=== PATIENT | male | born 1970 | race Caucasian/White ===

== ENCOUNTER 2018-01-14 16:30 | Emergency (ER) | payer BC ==
[2018-01-14] MEDS: IV NORMAL SALINE 1000ML BAG 1,000 ML IV (17:30)
[2018-01-14] MEDS: ONDANSETRON PF 4 MG/2 ML VIAL. IV (17:31)
[2018-01-14] MEDS: fentaNYL PF VIAL 100 MCG/2 ML VIAL IV ×2 (17:35→18:55)
[2018-01-14] MEDS: FAMOTIDINE 20 MG/2 ML VIAL IVP (17:36)
[2018-01-14 18:01] LABS: ADD MAN DIFF? NO
[2018-01-14 18:08] LABS: BASO # 0.1 x10^3/uL (0.0-0.2); BASO % 1 % (0-3); EOS % 9 % (0-3); HEMATOCRIT 43.4 % (39.0-53.0); HEMOGLOBIN 15.6 g/dL (13.0-17.5); LYMPH # 2.2 x10^3/uL (1.0-4.8); LYMPH % 19 % (24-48); MEAN CORPUSCULAR HEMOGLOBIN 31 pg (25-35); MEAN CORPUSCULAR HGB CONC 36 g/dL (31-37); MEAN CORPUSCULAR VOLUME 87 fL (79-100); MONO # 0.7 x10^3/uL (0.0-1.1); MONO % 6 % (0-9); NEUT # 7.8 x10^3uL (1.8-7.7); NEUT % 66 % (31-73); PLATELET COUNT 185 x10^3/uL (140-400); RED BLOOD COUNT 4.98 x10^6/uL (4.30-5.70); RED CELL DISTRIBUTION WIDTH 13.4 % (11.5-14.5); WHITE BLOOD COUNT 11.8 x10^3/uL (4.0-11.0)
[2018-01-14 18:13] LABS: ANION GAP 9 (6-14); BLOOD UREA NITROGEN 21 mg/dL (8-26); BUN/CREATININE RATIO 19 (6-20); CALCIUM 9.1 mg/dL (8.5-10.1); CARBON DIOXIDE 29 mmol/L (21-32); CHLORIDE 102 mmol/L (98-107); CREATININE 1.1 mg/dL (0.7-1.3); GFR 71.1; GLUCOSE 124 mg/dL (70-99); SODIUM 140 mmol/L (136-145)
[2018-01-14 18:21] LABS: ALBUMIN 4.3 g/dL (3.4-5.0); ALBUMIN/GLOBULIN RATIO 1.5 (1.0-1.7); ALK PHOS 71 U/L (46-116); ALT (SGPT) 35 U/L (16-63); AST (SGOT) 20 U/L (15-37); LIPASE 53 U/L (73-393); TOTAL BILIRUBIN 1.4 mg/dL (0.2-1.0); TOTAL PROTEIN 7.2 g/dL (6.4-8.2)
[2018-01-14 18:25] LABS: TROPONINI < 0.017 ng/mL (0.000-0.055)
[2018-01-14] MEDS ORDERED: CONTRAST GIVEN MC (19:00)
[2018-01-14] MEDS: LIDO:MAALOX 1:1 20 ML SINGLE DOSE. SWSW (19:05)
[2018-01-14] MEDS: IOHEXOL 300 MG/ML 100ML VIAL. IV (19:13)
[2018-01-14 20:03] LABS: POC GLUCOSE 106 mg/dL (70-99)
== END 2018-01-14 20:33 | disposition home or self-care (01) ==
LOC: ER 16:30
DX: K80.70 Calculus of gallbladder and bile duct without cholecystitis without obstruction (principal)
CPT/HCPCS: 36415; 74177; 76705; 80053; 82962; 83690; 84484; 85025; 93005; 96374; 96375; 96376; 99285-25; J2405; J3010; J7030; Q9967; S0028

== ENCOUNTER 2018-01-30 06:32 | Day surgery (SDC) | payer BC ==
[~2018-01-30 06:32] MED LIST: IOHEXOL 300 MG/ML 100ML VIAL.; SURGICEL HEMOSTAT 4X8 EACH.
[2018-01-30] MEDS: IV RINGERS,LACTATED 1000ML 1,000 ML IV (07:00)
[2018-01-30] MEDS ORDERED: fentaNYL PF VIAL 100 MCG/2 ML VIAL IV ×2 (07:00)
[2018-01-30] MEDS ORDERED: LIDOCAINE 1% PF 2 ML VIAL. ID (07:00)
[2018-01-30] MEDS ORDERED: MORPHINE SULFATE 4 MG/ML DISP.SYRIN. IV (07:00)
[2018-01-30 07:07] LABS: POC GLUCOSE 85 mg/dL (70-99)
[2018-01-30] MEDS ORDERED: fentaNYL PF VIAL 250 MCG/5 ML VIAL (07:34)
[2018-01-30] MEDS ORDERED: ROCURONIUM 50 MG/5 ML VIAL. (07:34)
[2018-01-30] MEDS ORDERED: MIDAZOLAM HCL/PF 2 MG/2 ML VIAL. (07:40)
[2018-01-30] MEDS: BUPIVACAINE-EPI 0.25%-1:200000 50 ML VIAL. (08:15)
[2018-01-30] MEDS ORDERED: DEXAMETHASONE SOD PHOS 20 MG/5 ML VIAL. (08:37)
[2018-01-30] MEDS ORDERED: PROPOFOL 20 ML IV (08:37)
[2018-01-30] MEDS ORDERED: SEVOFLURANE 61 TO 120 MINUTES. IH (08:37)
[2018-01-30] MEDS ORDERED: LIDOCAINE 2% PF Vial for OR 5 ML VIAL. (08:37)
[2018-01-30] MEDS ORDERED: NEOSTIGMINE METHYLSULFATE 5 MG/5 ML SYRINGE. (08:37)
[2018-01-30] MEDS ORDERED: ONDANSETRON PF 4 MG/2 ML VIAL. (08:37)
[2018-01-30] MEDS ORDERED: GLYCOPYRROLATE 1 MG/5 ML VIAL. (08:38)
[2018-01-30] MEDS ORDERED: oxyCODONE/APAP 5/325 1 TAB TABLET PO ×2 (09:15)
[2018-01-30] MEDS: PROCHLORPERAZINE 10 MG/2 ML VIAL. IV (09:20)
[2018-01-30] MEDS ORDERED: ceFAZolin 2GM PREMIX 2 GM/50 ML BAG IV (10:00)
== END 2018-01-30 10:53 | disposition home or self-care (01) ==
LOC: SURG 06:32
DX: K80.10 Calculus of gallbladder with chronic cholecystitis without obstruction (principal); K21.9 Gastro-esophageal reflux disease without esophagitis; F41.9 Anxiety disorder, unspecified; E11.9 Type 2 diabetes mellitus without complications; Z98.890 Other specified postprocedural states; Z72.89 Other problems related to lifestyle; Z72.0 Tobacco use
CPT/HCPCS: 47562; 82962; 88304; A7015; J0690; J0780; J1100; J2250; J2405; J2704; J2710; J3010; J3490; J7030; J7120; Q9967

== ENCOUNTER → 2018-04-23 | Outpatient (CLI) | payer BC ==
[2018-01-30 09:39] VITALS: BP 114/71
[~2018-04-23] MED LIST changes: +ALBU8.5H6 INH; +ALLO100T PO; +CITA40TA12 PO; +GLIP5TAB10 PO; +HYDR-971 PO; -IOHEXOL 300 MG/ML 100ML VIAL.; +METF10007 PO; +ONDA4TAB12 PO; +OXYC-323 PO; +RANI300T3 PO; -SURGICEL HEMOSTAT 4X8 EACH.
--- NOTE | 2018-04-23 16:25 | KCIC ---
Chest, 2 views, 04/23/2018: HISTORY: Fever, abnormal right lung sounds The heart size is normal. No pulmonary infiltrate is seen. There is no evidence of pleural fluid. A surgical plate and screws is evident in the lower cervical spine. A small radiopacity overlying the glenoid region of the right scapula is also probably postsurgical. IMPRESSION: No acute cardiopulmonary abnormality is detected. Electronically signed by: Prosper Fox MD (04/23/2018 4:22 PM) [facility]
== END | disposition home or self-care (01) ==
LOC: KCIC 15:48
PROVIDERS: ATTEND Family Medicine
DX: R09.89 Other specified symptoms and signs involving the circulatory and respiratory systems (principal); E11.9 Type 2 diabetes mellitus without complications; K21.9 Gastro-esophageal reflux disease without esophagitis; M19.022 Primary osteoarthritis, left elbow; Z72.0 Tobacco use
CPT/HCPCS: 71046

== ENCOUNTER → 2019-05-20 | Outpatient (CLI) | payer BC ==
[2018-01-30 09:39] VITALS: BP 114/71
[~2019-05-20] MED LIST changes: +HYDR-3164 PO; -HYDR-971 PO; -OXYC-323 PO; +OXYC1TAB15 PO
--- NOTE | 2019-05-20 13:32 | KCIC ---
MRI Lumbar Spine without contrast History: Back pain after fall Technique: Multiplanar, multi sequential noncontrast MR imaging was performed of the lumbar spine. Comparison: None Findings: Lumbar vertebral body stature is mostly preserved, small Schmorl's nodes L5. There are multiple foci of increased signal on all sequences of the marrow more likely due to hemangiomas given T1 hyperintense signal most notable of T12, L1, L4 and also the visualized bony pelvis. There is advanced degenerative disc disease at L5-S1, degenerative endplate change and edema greater posteriorly. There is no fluid in the intervertebral disc spaces. There is moderate degenerative disc disease at L4-5 and to lesser degree L2-3. Conus terminates at L1-2. L1-L2: This level was not included on the axial images. Neural foramina and spinal canal are adequate. L2-L3: There is negligible disc osteophyte complex. Spinal canal and neural foramina are adequate. There is mild to moderate facet degenerative change and minimal buckling of the ligamentum flavum. L3-L4: There is mild to moderate facet degenerative change and minimal buckling of the ligamentum flavum. The is mild prominence of posterior epidural fat centrally. There is negligible disc osteophyte complex. There is minimal narrowing of the inferior left neural foramen greater distally, disc osteophyte complex also near the extraforaminal left L3 nerve root without displacement. There is left posterolateral annular tear. Right neural foramen is adequate. Spinal canal is overall adequate. L4-L5: There is minimal disc osteophyte complex. There is minimal facet degenerative change. Spinal canal and neural foramina are overall adequate. L5-S1: There is disc osteophyte complex with superimposed bulge, also more focal protrusion in the left lateral recess estimated about 0.4 cm AP contacting the descending left S1 nerve root. There is mild narrowing of the far left lateral recess. There is mild facet degenerative change. Right neural foramen is overall adequate. Disc osteophyte complex and facet degenerative change contributes to [id number] narrowing of the left neural foramen. Impression: 1. There is more advanced degenerative disc disease L5-S1, to a lesser degree at L4-5 and minimally at L2-3. L5-S1 endplate edema is likely reactive/degenerative in etiology. 2. There is protrusion in the left lateral recess at L5-S1 contacting the descending left S1 nerve root with mild left lateral recess stenosis. There is no significant lumbar spinal stenosis. 3. There is [id number]-[id number] narrowing of the left L5-S1 neural foramen, minimal narrowing on the left at L3-4. 4. Multiple foci of marrow signal change are likely due to hemangiomas, variably hyperintense on T1 sequence. Electronically signed by: Darian Smith MD (05/20/2019 1:28 PM) [id number]
== END | disposition home or self-care (01) ==
LOC: KCIC MRI 12:20
PROVIDERS: ATTEND Chiropractor
DX: M51.37 Other intervertebral disc degeneration, lumbosacral region (principal); M51.27 Other intervertebral disc displacement, lumbosacral region; M25.78 Osteophyte, vertebrae; M48.07 Spinal stenosis, lumbosacral region
CPT/HCPCS: 72148

== ENCOUNTER → 2019-07-30 | Outpatient (CLI) | payer BC ==
[2018-01-30 09:39] VITALS: BP 114/71
--- NOTE | 2019-07-30 15:47 | KCIC ---
EXAM: Chest, 2 views. HISTORY: Bronchitis. COMPARISON: 04/23/2018 FINDINGS: 2 views the chest are obtained. There is no infiltrate, pleural effusion or pneumothorax. The heart is normal in size. There is cervical spinal fusion instrumentation. IMPRESSION: No acute pulmonary finding. Electronically signed by: Zakia Erazo MD (07/30/2019 3:44 PM) [place] [id number]
== END | disposition home or self-care (01) ==
LOC: KCIC 14:40
PROVIDERS: ATTEND Family Medicine
DX: J40 Bronchitis, not specified as acute or chronic (principal)
CPT/HCPCS: 71046

== ENCOUNTER → 2020-09-20 | Outpatient (CLI) | payer BC ==
[2018-01-30 09:39] VITALS: BP 114/71
--- NOTE | 2020-09-20 12:59 | KCIC ---
EXAM: Maxillofacial bone CT without contrast. HISTORY: Chronic sinusitis. TECHNIQUE: Computed tomographic images of the maximal facial bones were obtained without contrast. *One or more of the following individualized dose reduction techniques were utilized for this examina tion: 1. Automated exposure control. 2. Adjustment of the mA and/or kV according to patient size. 3. Use of iterative reconstruction technique. COMPARISON: None. FINDINGS: There is minimal bilateral frontal, ethmoid and maxillary sinus mucosal thickening. The ost iomeatal units are patent. There is mild rightward nasal septal deviation. There is no sinus air-flui d level to suggest acute sinusitis. There is no sinus wall thickening to suggest chronic sinusitis. T he orbits and mastoid air cells are unremarkable. The visualized portions of the calvarium and brain are unremarkable. IMPRESSION: 1. Minimal paranasal sinus mucosal thickening. 2. Mild nasal septal deviation. Electronically signed by: Zakia Erazo MD (09/20/2020 12:56 PM) [id number]
== END ==
LOC: KCIC CT 10:28
PROVIDERS: ATTEND Family Medicine
DX: J32.8 Other chronic sinusitis (principal); J34.2 Deviated nasal septum; R51.9 Headache, unspecified; R09.81 Nasal congestion
CPT/HCPCS: 70486

== ENCOUNTER → 2020-09-21 | Outpatient (CLI) | payer BC ==
[2018-01-30 09:39] VITALS: BP 114/71
--- NOTE | 2020-09-21 14:11 | RAD ---
MR#: [id number] Date of Study: 09/21/2020 Ordering Physician: JEFFERY GEORGE, Referring Physician: FELIPE WRIGHT Tech: APPROVED REPORT Test Type: Exercise Stress Nurse/Tech: Patricia Moya R.N. Test Indications: C/P Cardiac History: DM, chews tobacco, recent HTN Medications: See Electronic Medical Record Medical History: See Electronic Medical Record Resting ECG: SR Resting Heart Rate: 82 bpm Resting Blood Pressure: 171/87mmHg Pretest Chest Pain: No chest pain Nurse/Tech Notes S1S2, lungs CTA Consent: The procedure was explained to the patient in lay terms. Informed consent was witnessed. Joe eout was entered into [employer] [place]. History and Stress Test performed by RT Willi (R) (N) Stress Symptoms SOA, fatigue POST EXERCISE Reason for Termination: Reached target heart rate Target HR: Yes Max HR: 145 bpm 86% of Maximum Predicted HR: 168 bpm Exercise duration: 8:58 min:sec, 3 Stage Exercise capacity: 10.0METs Max Blood Pressure: 206/90mmHg Blood Pressure response to exercise: Normal blood pressure response during stress. Heart Rate response to exercise: wnl Chest Pain: No. Arrhythmia: No. INTERPRETATION Stress EKG Conclusion: The resting EKG shows a sinus rhythm. There is mild upsloping ST depression in the lateral leads and mild ST depression in lead III. Mild EKG changes with exertion that are not diagnostic of stress-induced ischemia. Conclusion 1. Good exercise tolerance with patient walking for 8 minutes and 58 seconds on a Rohit protocol. 2. No reported chest pain with exertion. 3. Normal baseline EKG. 4. Mild nonspecific ST segment changes with exertion that are not diagnostic of stress-induced ischem ia. 5. Moderately low risk treadmill stress test. However if clinical suspicion is sufficient would cons ider a treadmill nuclear stress test. Signed by : Faustino Lacey MD Electronically Approved : 09/21/2020 14:11:03
== END ==
LOC: NM 08:19
PROVIDERS: ATTEND Family Medicine
DX: I10 Essential (primary) hypertension (principal)
CPT/HCPCS: 93017

== ENCOUNTER → 2020-09-26 | Outpatient (CLI) | payer BC ==
[2018-01-30 09:39] VITALS: BP 114/71
[~2020-09-26] MED LIST changes: +IOHEXOL 240 MG/ML 50ML VIAL. PO ONE; +IOHEXOL 300 MG/ML 100ML VIAL. IV ONE
--- NOTE | 2020-09-27 12:39 | KCIC ---
PQRS Compliance Statement: One or more of the following individualized dose reduction techniques were utilized for this examinat ion: 1. Automated exposure control 2. Adjustment of the mA and/or kV according to patient size 3. Use of iterative reconstruction technique CT ABDOMEN+PELVIS W Clinical Indication: Reason: RUQ pain, bilateral flank pain radiates to front, chills. / hx cholecyst ectomy / History: Comparison: CT abdomen and pelvis with contrast January 14, 2018. Technique: Helical CT imaging of the abdomen and pelvis is performed after 100 cc of Omnipaque 300 IV contrast. Oral contrast also administered. Findings: The lung bases are clear. Cardiac size normal. There is a 1 cm hyperenhancing lesion in segment 2 of the liver, image 12. In retrospect this lesion is very subtly present on the prior study, therefore most likely benign. Flash filling hemangioma a c onsideration. Cholecystectomy. Splenomegaly. Fatty infiltration of the liver. The pancreas and adrenal glands and a bdominal aorta are normal. There is moderate bilateral hydroureteronephrosis. There is no obvious abnormality of the stomach. There is no dilated small bowel. The appendix is norm al. Scattered stool in the colon. There is no colon wall thickening. There is enhancing mass in the base of the urinary bladder measuring approximately 3.2 cm AP by 4.4 c m transverse by 3.2 cm craniocaudal. Unclear if the origin is urinary bladder or prostate. The mass i s hyperenhancing compared to the prostate. Prostate size upper limits of normal. No pelvic free fluid . Vacuum disc phenomenon and endplate sclerosis of L5/S1. IMPRESSION: 1. There is an enhancing mass in the base of the urinary bladder. Bladder malignancy is favored over prostate malignancy. The mass is producing moderate bilateral hydroureteronephrosis. 2. Fatty infiltration of the liver. 3. Splenomegaly. 4. Small enhancing lesion of the left hepatic lobe may be flash filling hemangioma. Electronically signed by: Yony Camara MD (09/27/2020 12:36 PM) [id number]
== END ==
LOC: KCIC CT 07:51
PROVIDERS: ATTEND Physician Assistant
DX: N13.39 Other hydronephrosis (principal); R16.1 Splenomegaly, not elsewhere classified; K76.0 Fatty (change of) liver, not elsewhere classified; K76.9 Liver disease, unspecified; Z90.49 Acquired absence of other specified parts of digestive tract
CPT/HCPCS: 74177; Q9966; Q9967